=== PATIENT | female | born 1950 | race African-American/Black ===

== ENCOUNTER 2020-09-11 18:20 | Observation (INO) ==
[2020-09-11] MEDS ORDERED: SODIUM CHLORIDE 0.9% 1,000 ML IV STA (18:57)
[2020-09-11] MEDS ORDERED: hydrALAZINE 20 MG/1 ML VIAL IV STA ×2 (19:27→21:29)
[2020-09-11 19:39] LABS: Bilirubin,Urine Negative (Negative); Blood, Urine Small mg/dL (Negative); Glucose,Urine (UA) >=500 mg/dL (Negative); Ketones,Urine Negative (Negative); Mucus,Urine Occasional /LPF (Occasional); Nitrite,Urine Negative (Negative); Protein,Urine 100 MG/DL; RBC,Urine 9 /HPF (0-4); Urine Appearance CLEAR (Clear); Urine Color Straw (Yellow); Urine Specific Gravity 1.014 (1.001-1.035); Urine Urobilinogen < 2.0 EU/DL (0.2-1.0); WBC,Urine 1 /HPF (0-6)
[2020-09-11 19:46] LABS: Barbiturates Screen,Urine Negative (Negative); Benzodiazepines Screen,Urine Negative (Negative); Cannabinoid Screen,Urine Negative (Negative); Opiate Screen,Urine Positive (Negative); Phencyclidine Screen,Urine Negative (Negative)
[2020-09-11 20:03] LABS: Basophils % 0.2 % (0.0-0.8); Eosinophils # 0.2 10*3/uL (0.0-0.87); Eosinophils % 1.1 % (0.00-10.9); Hematocrit 39.4 VOL% (35.7-47.0); Hemoglobin 12.7 GM/DL (12.0-16.0); Immature Granulocytes % 0.5 %; Immature Granulocytes Absolute 0.06 #; Lymphocytes # 1.6 10*3/uL (1.4-4.0); Lymphocytes % 11.8 % (21.3-54.2); Mean Corpuscular HGB Conc 32.2 GM/DL (32-36); Mean Corpuscular Volume 85.3 FL (87-102); Mean Platelet Volume 12.1 FL (9.6-12.0); Monocytes % 6.2 % (1.7-12.7); Neutrophils % 80.2 % (38.7-73.9); Platelet Count 213 T/CUMM (130-400); Red Blood Count 4.62 MC/CUMM (3.8-5.5); Red Cell Distribution Width 14.5 % (9.3-17.3); White Blood Count 13.2 T/CUMM (4-12)
[2020-09-11 21:09] LABS: Albumin 3.7 G/DL (3.4-5.0); Bilirubin,Total 0.4 MG/DL (0.2-1.0); Calcium 9.2 MG/DL (8.5-10.1); Osmolality,Calculated 297.7 MOS/KG (273-304)
[2020-09-11] MEDS ORDERED: INSULIN LISPRO 100 UNIT/ML SUBCUT STA (21:35)
[2020-09-11] MEDS ORDERED: GLUCAGON 1 MG VIAL IM PRN (23:05)
[2020-09-11] MEDS ORDERED: DEXTROSE 50% 25 GM/50 ML VIAL IV PRN (23:05)
[2020-09-11] MEDS: ASPIRIN 325 MG TABLET PO STA (23:15)
[2020-09-11] MEDS ORDERED: ACETAMINOPHEN 325 MG TABLET PO PRN (23:43)
[2020-09-11] MEDS ORDERED: ONDANSETRON 4 MG/2 ML VIAL IV PRN (23:43)
[2020-09-11] MEDS ORDERED: DOCUSATE SODIUM 100 MG CAPSULE PO PRN (23:43)
[2020-09-12] MEDS: ASPIRIN 325 MG TABLET PO STA (00:03)
[2020-09-12] MEDS: INSULIN LISPRO 100 UNIT/ML SUBCUT SCH ×4 (01:11→18:08)
[2020-09-12] MEDS: SODIUM CHLORIDE 0.9% 1,000 ML IV SCH ×2 (01:12→14:09)
[2020-09-12 05:34] LABS: Basophils % 0.2 % (0.0-0.8); Eosinophils % 0.1 % (0.00-10.9); Hematocrit 34.5 VOL% (35.7-47.0); Immature Granulocytes % 0.4 %; Immature Granulocytes Absolute 0.04 #; Lymphocytes # 1.9 10*3/uL (1.4-4.0); Mean Corpuscular HGB Conc 31.9 GM/DL (32-36); Mean Corpuscular Volume 85.6 FL (87-102); Mean Platelet Volume 12.6 FL (9.6-12.0); Monocytes % 7.7 % (1.7-12.7); Neutrophils % 74.6 % (38.7-73.9); Platelet Count 206 T/CUMM (130-400); Red Blood Count 4.03 MC/CUMM (3.8-5.5); Red Cell Distribution Width 14.3 % (9.3-17.3)
[2020-09-12 05:58] LABS: Calcium 8.7 MG/DL (8.5-10.1); Osmolality,Calculated 294.7 MOS/KG (273-304); Risk Ratio 2.36; VLDL CHOLESTEROL 13.6 MG/DL
[2020-09-12 06:02] LABS: Thyroid Stimulating Hormone 1.56 uIU/ml (0.358-3.74)
[2020-09-12] MEDS: ENOXAPARIN 30 MG/0.3 ML SYRINGE SUBCUT SCH (09:00)
[2020-09-12] MEDS: carvediloL 25 MG TABLET PO SCH ×2 (11:42→17:09)
[2020-09-12] MEDS: GABAPENTIN 300 MG CAPSULE PO SCH ×3 (11:42→21:59)
[2020-09-12] MEDS: POTASSIUM CHLORIDE 8 MEQ CAPSULE PO SCH (11:42)
[2020-09-12] MEDS: ASPIRIN EC 81 MG TABLET PO SCH (11:42)
[2020-09-12] MEDS: FERROUS SULFATE 325 MG TABLET PO SCH ×2 (11:42→22:00)
[2020-09-12] MEDS: amLODIPine 10 MG TABLET PO SCH (11:42)
[2020-09-12] MEDS: INSULIN GLARGINE 100 UNIT/ML SUBCUT SCH ×2 (11:48→22:00)
[2020-09-12] MEDS ORDERED: PIOGLITAZONE 15 MG TABLET PO SCH (21:00)
[2020-09-12] MEDS ORDERED: ATORVASTATIN 20 MG TABLET PO SCH (21:00)
[2020-09-13] MEDS: INSULIN LISPRO 100 UNIT/ML SUBCUT SCH ×3 (01:25→12:05)
[2020-09-13] MEDS: SODIUM CHLORIDE 0.9% 1,000 ML IV SCH (04:33)
[2020-09-13] MEDS: POTASSIUM CHLORIDE 8 MEQ CAPSULE PO SCH (09:15)
[2020-09-13] MEDS: ASPIRIN EC 81 MG TABLET PO SCH (09:15)
[2020-09-13] MEDS: GABAPENTIN 300 MG CAPSULE PO SCH ×2 (09:15→14:28)
[2020-09-13] MEDS: FERROUS SULFATE 325 MG TABLET PO SCH (09:15)
[2020-09-13] MEDS: ENOXAPARIN 30 MG/0.3 ML SYRINGE SUBCUT SCH (09:16)
[2020-09-13] MEDS: carvediloL 25 MG TABLET PO SCH (09:16)
[2020-09-13] MEDS: amLODIPine 10 MG TABLET PO SCH (09:16)
[2020-09-13] MEDS: INSULIN GLARGINE 100 UNIT/ML SUBCUT SCH (09:16)
[2020-09-13 12:44] VITALS: BP 133/60
== END 2020-09-13 16:05 | disposition home or self-care (01) ==
LOC: EDUNIT# → N.ED 18:20 → N.EDINP 18:20 → N.TELES 23:23
PROVIDERS: ADMIT Family Medicine; ATTEND Family Medicine